=== PATIENT | male | born 1945 | race Caucasian/White ===

== ENCOUNTER 2019-09-23 10:31 | Inpatient (IN) ==
[~2019-09-23 10:31] MED LIST: Buffered Lidocaine 1% SYRIN 1 ml INTRADERM ONE; Lactated Ringers 1000 ml BAG 1,000 ML IV SCH
[2019-09-23] MEDS ORDERED: ceFAZolin 2 GM PREMIX 2 GM/50 ML BAG ONE (10:53)
[2019-09-23] MEDS ORDERED: ROPIVACAINE 5 MG/ML 30 ML BTL (0.5%) ONE ×2 (11:15→12:53)
[2019-09-23] MEDS ORDERED: Propofol 10 MG/ML 20 ML BTL ONE ×2 (11:18→11:50)
[2019-09-23] MEDS ORDERED: fentaNYL 250 mcg/5 ml 50 MCG/ML 5 ml VIAL (250 MCG) ONE (11:19)
[2019-09-23] MEDS ORDERED: Midazolam 5 mg/5 ml VIAL 1 mg/ml 5 ml VIAL (5 mg) ONE (11:19)
[2019-09-23] MEDS ORDERED: Phenylephrine 40 mcg/mL 10mL (400mcg) SYRINGE ONE (11:26)
[2019-09-23] MEDS ORDERED: Phenylephrine IV 10 MG/ML 1 ml VIAL ONE ×2 (11:26→11:27)
[2019-09-23] MEDS ORDERED: fentaNYL 100 mcg/2 ml 50 MCG/ML VIAL IV PRN (14:10)
[2019-09-23] MEDS ORDERED: Ondansetron 4 mg VIAL 2 MG/ML 2 ml VIAL IV PRN ×2 (14:10→15:53)
[2019-09-23] MEDS ORDERED: Naloxone 0.4 mg VIAL 0.4 mg/ml 1 ml VIAL IV PRN (14:10)
[2019-09-23] MEDS ORDERED: Morphine 2 MG/ML SYRINGE IV PRN (15:53)
[2019-09-23] MEDS ORDERED: Lactulose 30 ml UDC PO PRN (15:53)
[2019-09-23] MEDS ORDERED: diPHENhydraMINE IV 50 MG/ML 1 ml VIAL (BENADRYL) IV PRN (15:53)
[2019-09-23] MEDS ORDERED: Ondansetron ODT 4 mg TAB 4 MG TAB PO PRN (15:53)
[2019-09-23] MEDS ORDERED: Magnesium Hydroxide LIQ 30 ML UDC PO PRN (15:53)
[2019-09-23] MEDS ORDERED: oxyCODONE/Acetamin 5/325 mg TAB PO PRN (15:53)
[2019-09-23] MEDS ORDERED: diPHENhydraMINE 25 mg TAB PO PRN (15:53)
[2019-09-23] MEDS: Lactated Ringers 1000 ml BAG 1,000 ML IV SCH (17:05)
[2019-09-23] MEDS ORDERED: Morphine 2 MG/ML SYRINGE ONE (19:02)
[2019-09-23] MEDS ORDERED: Morphine 2 MG/ML SYRINGE IV ONE (19:05)
[2019-09-23] MEDS: Morphine ER 15 mg TAB ** extended release PO SCH (21:40)
[2019-09-23] MEDS: Magnesium Hydroxide LIQ 30 ML UDC PO SCH ×2 (21:40→21:46)
[2019-09-23] MEDS: ceFAZolin 1 GM ADVAN 1 GM in NS 0.9% 50 ML 50 ML IVPB SCH (21:41)
[2019-09-24] MEDS ORDERED: Polyethylene Glycol 3350 17 GM PACKET PO PRN (00:01)
[2019-09-24] MEDS: oxyCODONE/Acetamin 5/325 mg TAB PO PRN ×4 (03:06→18:33)
[2019-09-24] MEDS: Lactated Ringers 1000 ml BAG 1,000 ML IV SCH (03:38)
[2019-09-24] MEDS: ceFAZolin 1 GM ADVAN 1 GM in NS 0.9% 50 ML 50 ML IVPB SCH ×2 (05:02→13:08)
[2019-09-24 06:21] LABS: Hematocrit 29 % (42-52); Hemoglobin 10.2 g/dL (14.0-18.0); Mean Platelet Volume 8.5 fL (7.4-10.4); Platelet Count 118 10^3/uL (150-450)
[2019-09-24 06:47] LABS: Calcium 8.5 mg/dL (8.6-10.3); EGFR African American 63.4 (>60); EGFR Non-African American 52.4 (>60); Potassium 4.5 mmol/L (3.5-5.0)
[2019-09-24] MEDS: Morphine ER 15 mg TAB ** extended release PO SCH ×2 (09:09→21:43)
[2019-09-24] MEDS: Vitamin THERAPEUTIC TAB PO SCH (09:10)
[2019-09-24] MEDS: Magnesium Hydroxide LIQ 30 ML UDC PO SCH ×2 (10:59→21:44)
[2019-09-25 04:44] LABS: Hematocrit 31 % (42-52); Hemoglobin 10.9 g/dL (14.0-18.0); Mean Platelet Volume 8.8 fL (7.4-10.4); Platelet Count 125 10^3/uL (150-450)
[2019-09-25] MEDS: oxyCODONE/Acetamin 5/325 mg TAB PO PRN (06:38)
[2019-09-25 07:54] LABS: Anion Gap 3 mmol/L (2-11); CO2 Carbon Dioxide 30 mmol/L (22-32); Calcium 8.2 mg/dL (8.6-10.3); Chloride 100 mmol/L (101-111); Potassium 4.4 mmol/L (3.5-5.0); Sodium 133 mmol/L (135-145)
[2019-09-25] MEDS: Morphine ER 15 mg TAB ** extended release PO SCH ×2 (07:57→22:19)
[2019-09-25] MEDS: Vitamin THERAPEUTIC TAB PO SCH (07:58)
[2019-09-25] MEDS: Magnesium Hydroxide LIQ 30 ML UDC PO SCH ×2 (07:58→22:20)
[2019-09-25 08:00] LABS: BUN/Creatinine Ratio 15.4 (8-20); Blood Urea Nitrogen 19 mg/dL (6-24); EGFR African American 69.4 (>60); EGFR Non-African American 57.4 (>60); Glucose 121 mg/dL (70-100)
[2019-09-25] MEDS ORDERED: Iodixanol (CONTRAST) 320 MG/ML 100 ML SDV IV ONE (09:41)
[2019-09-25] MEDS: NS 0.9% 1000 ml BAG 1,000 ML IV SCH (09:53)
[2019-09-25 11:53] LABS: ABS Lymphocytes 0.7 10^3/ul (1.0-4.8); ABS Neutrophils 8.3 10^3/ul (1.5-7.7); Eosinophil % 0.4 %; Hematocrit 30 % (42-52); Hemoglobin 10.3 g/dL (14.0-18.0); Lymphocyte % 7.3 %; Mean Corpuscular HGB Conc 35 g/dL (31-36); Mean Corpuscular Hemoglobin 32 pg (27-31); Mean Corpuscular Volume 93 fL (80-94); Mean Platelet Volume 8.9 fL (7.4-10.4); Platelet Count 119 10^3/uL (150-450); Red Cell Distribution Width 13 % (10-15)
[2019-09-25 12:14] LABS: EGFR African American 73.5 (>60); EGFR Non-African American 60.8 (>60)
[2019-09-25] MEDS: Heparin 5000 UNITS/ML 1 mL VIAL IV SCH ×2 (13:41→23:18)
[2019-09-25] MEDS: Heparin DRIP 25,000 UNITS BAG 25,000 UNITS/500 ML BAG IV SCH (13:46)
[2019-09-25] MEDS: Cefepime 1 GM in Dextrose 1 GM/50 ML BAG IV SCH (19:30)
[2019-09-25] MEDS ORDERED: Lactated Ringers 1000 ml BAG 1,000 ML IV SCH (20:00)
[2019-09-25 20:34] LABS: Urine Appearance Clear; Urine Bilirubin Negative (Negative); Urine Blood Negative (Negative); Urine Color Yellow; Urine Glucose Negative (Negative); Urine Ketones Negative (Negative); Urine Nitrite Negative (Negative); Urine Protein Negative (Negative); Urine Specific Gravity 1.032 (1.010-1.030); Urine Urobilinogen Negative (Negative)
[2019-09-25 22:27] LABS: ABS Eosinophils 0.1 10^3/ul (0-0.6); ABS Lymphocytes 0.8 10^3/ul (1.0-4.8); ABS Monocytes 1.2 10^3/ul (0-0.8); Eosinophil % 0.6 %; Hematocrit 29 % (42-52); Hemoglobin 10.1 g/dL (14.0-18.0); Lymphocyte % 7.5 %; Mean Corpuscular HGB Conc 35 g/dL (31-36); Mean Corpuscular Hemoglobin 32 pg (27-31); Mean Corpuscular Volume 92 fL (80-94); Mean Platelet Volume 8.6 fL (7.4-10.4); Platelet Count 128 10^3/uL (150-450); Red Blood Count 3.12 10^6 /uL (4.18-5.48); Red Cell Distribution Width 13 % (10-15)
[2019-09-25 22:43] LABS: Anion Gap 5 mmol/L (2-11); BUN/Creatinine Ratio 16.4 (8-20); Blood Urea Nitrogen 21 mg/dL (6-24); CO2 Carbon Dioxide 26 mmol/L (22-32); Chloride 99 mmol/L (101-111); EGFR African American 66.3 (>60); EGFR Non-African American 54.8 (>60); Glucose 126 mg/dL (70-100); Magnesium 2.1 mg/dL (1.9-2.7); Potassium 4.2 mmol/L (3.5-5.0); Sodium 130 mmol/L (135-145)
[2019-09-25 22:56] LABS: Troponin I 0.03 ng/mL (<0.03)
[2019-09-25 23:58] LABS: Troponin I 0.03 ng/mL (<0.03)
[2019-09-26] MEDS: Lactated Ringers 1000 ml BAG 1,000 ML IV SCH (00:02)
[2019-09-26] MEDS: NS 0.9% 1000 ml BAG 1,000 ML IV SCH ×2 (00:33→12:00)
[2019-09-26 05:26] LABS: ABS Eosinophils 0.1 10^3/ul (0-0.6); ABS Lymphocytes 1.3 10^3/ul (1.0-4.8); ABS Monocytes 0.8 10^3/ul (0-0.8); ABS Neutrophils 5.3 10^3/ul (1.5-7.7); Eosinophil % 1.4 %; Hematocrit 26 % (42-52); Hemoglobin 9.2 g/dL (14.0-18.0); Lymphocyte % 17.7 %; Mean Corpuscular HGB Conc 35 g/dL (31-36); Mean Corpuscular Hemoglobin 32 pg (27-31); Mean Corpuscular Volume 91 fL (80-94); Mean Platelet Volume 8.6 fL (7.4-10.4); Platelet Count 111 10^3/uL (150-450); Red Blood Count 2.86 10^6 /uL (4.18-5.48); Red Cell Distribution Width 13 % (10-15); White Blood Count 7.6 10^3/uL (3.5-10.8)
[2019-09-26] MEDS: Heparin 5000 UNITS/ML 1 mL VIAL IV SCH (06:52)
[2019-09-26] MEDS ORDERED: Vancomycin 1,000 MG in NS 0.9% 250 ml 250 ML IVPB ONE (07:30)
[2019-09-26] MEDS ORDERED: Vancomycin per Pharmacy 1 EA NOTE FOLLOW UP SCH (08:00)
[2019-09-26] MEDS: Cefepime 1 GM in Dextrose 1 GM/50 ML BAG IV SCH (08:19)
[2019-09-26] MEDS: Magnesium Hydroxide LIQ 30 ML UDC PO SCH ×2 (08:20→23:50)
[2019-09-26 08:28] LABS: CO2 Carbon Dioxide 21 mmol/L (22-32); Calcium 7.5 mg/dL (8.6-10.3); Chloride 105 mmol/L (101-111); Sodium 132 mmol/L (135-145)
[2019-09-26] MEDS: Vitamin THERAPEUTIC TAB PO SCH (08:33)
[2019-09-26] MEDS: Morphine ER 15 mg TAB ** extended release PO SCH ×2 (08:33→23:50)
[2019-09-26 08:34] LABS: BUN/Creatinine Ratio 16.5 (8-20); Blood Urea Nitrogen 20 mg/dL (6-24); EGFR African American 70.7 (>60); EGFR Non-African American 58.5 (>60); Glucose 104 mg/dL (70-100)
[2019-09-26] MEDS: Heparin DRIP 25,000 UNITS BAG 25,000 UNITS/500 ML BAG IV SCH (08:36)
[2019-09-26 08:52] LABS: Anion Gap 6 mmol/L (2-11)
[2019-09-26] MEDS: oxyCODONE/Acetamin 5/325 mg TAB PO PRN (11:24)
[2019-09-26] MEDS ORDERED: Enoxaparin 80 MG/0.8 ML SYR SUBCUT SCH (13:00)
[2019-09-26] MEDS: Vancomycin 750 MG in NS 0.9% 250 ml 250 ML IVPB SCH (17:07)
[2019-09-27] MEDS: Vancomycin 750 MG in NS 0.9% 250 ml 250 ML IVPB SCH ×2 (01:00→10:44)
[2019-09-27] MEDS: Vitamin THERAPEUTIC TAB PO SCH (08:22)
[2019-09-27] MEDS: Morphine ER 15 mg TAB ** extended release PO SCH ×2 (08:29→09:13)
[2019-09-27] MEDS ORDERED: Vancomycin Trough Check NOTE FOLLOW UP ONE (08:30)
[2019-09-27] MEDS: Cefepime 1 GM in Dextrose 1 GM/50 ML BAG IV SCH (09:14)
[2019-09-27] MEDS: Magnesium Hydroxide LIQ 30 ML UDC PO SCH (10:40)
[2019-09-27 16:19] VITALS: BP 148/73
== END 2019-09-27 16:45 | DRG 470 ==
LOC: AA 10:31 → INTOOBSV 10:31 → SSU 15:53 → MED 09-25 21:21
PROVIDERS: ADMIT Orthopaedic Surgery Adult Reconstructive Orthopaedic Surgery; ATTEND Orthopaedic Surgery Adult Reconstructive Orthopaedic Surgery